=== PATIENT | male | born 1955 | race Caucasian/White ===

== ENCOUNTER 2017-08-31 11:01 | Inpatient (IN) | payer OTHER ==
[~2017-08-31 11:01] MED LIST: EPHEDrine SULFATE 50 MG/5 ML SYG
[2017-08-31] MEDS: ONDANSETRON 4 MG INJ IV (12:12)
[2017-08-31] MEDS: morphine 4 MG/ML VIAL IV (12:13)
[2017-08-31] MEDS: SOD CHLORIDE 0.9% 500 ML IV (12:13)
[2017-08-31 12:20] LABS: WHITE BLOOD COUNT 8.5 10^3/ul (4.8-10.8)
[2017-08-31 12:20] LABS: ABNORMAL IP MESSAGE 1; HEMOGLOBIN 16.2 g/dl (14.0-18.0); MEAN CORPUSCULAR HEMOGLOBIN 28.5 pg (29.0-33.0); MEAN CORPUSCULAR HGB CONC 33.8 g/dl (32.0-37.0); MEAN CORPUSCULAR VOLUME 84.4 fl (82.0-101.0); MEAN PLATELET VOLUME 10.6 fl (7.4-10.4); PLATELET COUNT 307 10^3/UL (140-415); POSITIVE DIFF @See below; RED BLOOD COUNT 5.69 10^6/ul (4.70-6.10); RED CELL DISTRIBUTION WIDTH 13.2 % (11.5-14.5)
[2017-08-31 12:21] LABS: ADD MAN DIFF? YES
[2017-08-31 12:37] LABS: LACTIC ACID 2.2 mmol/L (0.5-2.0)
[2017-08-31 12:38] LABS: ALANINE AMINOTRANSFERASE 31 IU/L (13-69); ALBUMIN 4.3 g/dl (3.3-4.9); ALBUMIN/GLOBULIN RATIO 1.38; ALKALINE PHOSPHATASE 83 IU/L (42-121); ANION GAP 24 (8-16); ASPARTATE AMINO TRANSFERASE 21 IU/L (15-46); BILIRUBIN,INDIRECT 0.3 mg/dl (0-1.1); BILIRUBIN,TOTAL 0.3 mg/dl (0.2-1.3); BLOOD UREA NITROGEN 39 mg/dl (7-20); CALCIUM 9.6 mg/dl (8.4-10.2); CARBON DIOXIDE 30 mmol/L (21-31); CHLORIDE 94 mmol/L (97-110); CREATININE 1.49 mg/dl (0.61-1.24); GLUCOSE 207 mg/dl (70-220); LIPASE 446 U/L (23-300); POTASSIUM 3.7 mmol/L (3.5-5.1); SODIUM 144 mmol/L (135-144); TOTAL PROTEIN 7.4 g/dl (6.1-8.1)
[2017-08-31 12:46] LABS: ANISOCYTOSIS 2+ (0-0); BAND NEUTROPHILS #M 3.8 10^3/ul (0.0-0.6); BAND NEUTROPHILS % (M) 45 % (0-4); LYMPHOCYTES #M 1.1 10^3/ul (0.8-2.9); LYMPHOCYTES % (M) 13 % (15-51); METAMYELOCYTES %M 1 % (0-0); MICROCYTOSIS 1+ (0-0); MONOCYTES % (M) 12 % (0-11); PLATELET ESTIMATE NORMAL; POIKILOCYTOSIS 1+ (0-0); POLYCHROMASIA 1+ (0-0); SEG NEUT #M 2.8 10^3/ul (1.7-7.5); SEGMENTED NEUTROPHILS (M) % 29 % (39-77)
[2017-08-31 13:40] LABS: TROPONIN-I < 0.012 ng/ml (0.00-0.12)
[2017-08-31] MEDS ORDERED: ONDANSETRON 4 MG INJ IV ×3 (16:30→21:00)
[2017-08-31] MEDS ORDERED: ACETAMINOPHEN 325 MG TAB PO ×2 (16:30→20:00)
[2017-08-31] MEDS ORDERED: D5W-0.45 NACL + KCL 20 MEQ 1,000 ML IV ×2 (19:35→21:56)
[2017-08-31 19:36] LABS: ADD UMIC YES; UR ASCORBIC ACID NEGATIVE (NEGATIVE); UR BILIRUBIN (Dip) NEGATIVE (NEGATIVE); UR BLOOD (Dip) 1+ mg/dL (NEGATIVE); UR CLARITY SLIGHTLY CLOUDY (CLEAR); UR COLOR AMBER (YELLOW); UR GLUCOSE (Dip) 1+ mg/dL (NEGATIVE); UR KETONES (Dip) TRACE mg/dL (NEGATIVE); UR LEUKOCYTE ESTERASE (Dip) NEGATIVE Leu/ul (NEGATIVE); UR MUCUS MODERATE /HPF (NONE SEEN); UR NITRITE (Dip) NEGATIVE (NEGATIVE); UR RBC 5 /HPF (0-5); UR SPECIFIC GRAVITY (Dip) 1.031 (1.003-1.030); UR TOTAL PROTEIN (Dip) 2+ mg/dl (NEGATIVE); UR UROBILINOGEN (Dip) 1+ mg/dL (NEGATIVE); UR WBC 2 /HPF (0-5)
[2017-08-31] MEDS ORDERED: NACL 0.9% 3 ML SYG IV (20:00)
[2017-08-31] MEDS ORDERED: GLYCOPYRROLATE 0.4 MG INJ ×3 (20:55→21:44)
[2017-08-31] MEDS ORDERED: SUCCINYLCHOLINE CHLORIDE 100 MG/5 ML SYG IV (20:55)
[2017-08-31] MEDS ORDERED: LIDOCAINE 2% (SDV) 5 ML INJ (20:55)
[2017-08-31] MEDS ORDERED: PROPOFOL 20 ML (20:55)
[2017-08-31] MEDS ORDERED: ROCURONIUM 50 MG INJ (20:55)
[2017-08-31] MEDS ORDERED: MEPERIDINE 100 MG INJ (20:55)
[2017-08-31] MEDS ORDERED: NEOSTIGMINE 3 MG/3 ML SYRINGE ×2 (20:55→21:44)
[2017-08-31] MEDS ORDERED: MIDAZOLAM 1 MG/ML 2 ML INJ IV (21:00)
[2017-08-31] MEDS ORDERED: HYDROmorphONE (0.2 MG/ML) 10ML SYG IV ×3 (21:00)
[2017-08-31] MEDS ORDERED: LABETALOL HCL 20MG INJ IV (21:00)
[2017-08-31] MEDS ORDERED: FENTAnyl 50 MCG/ML VIAL IV ×3 (21:00)
[2017-08-31] MEDS ORDERED: OXYCODONE/ACETAMINOPHEN (5/325) TAB PO ×2 (21:00)
[2017-08-31] MEDS ORDERED: DIPHENHYDRAMINE 50 MG INJ IV (21:00)
[2017-08-31] MEDS ORDERED: hydrALAzine 20 MG INJ IV (21:00)
[2017-08-31] MEDS ORDERED: EPHEDrine SULFATE 50 MG/5 ML SYG IV (21:00)
[2017-08-31] MEDS ORDERED: METOCLOPRAMIDE 10 MG INJ IV (21:00)
[2017-08-31] MEDS ORDERED: LIDOCAINE 1% (MPF) 30 ML INJ (21:25)
[2017-08-31] MEDS ORDERED: BUPIVACAINE 0.25%/EPI (SDV) 30 ML INJ (21:25)
[2017-08-31] MEDS ORDERED: EPINEPHrine 0.1 MG/ML SYG (21:44)
[2017-08-31] MEDS ORDERED: CEFAZOLIN 1 GM INJ (21:44)
[2017-08-31] MEDS: DEXTROSE 5%-0.45% NACL 1,000 ML IV (22:00)
[2017-08-31] MEDS ORDERED: KETOROLAC 15 MG INJ IV (22:00)
[2017-08-31] MEDS: CEFAZOLIN 2 GM/50 ML (PMX) 50 ML IVPB (22:00)
[2017-08-31] MEDS: BUPIVACAINE 0.25%/EPI (SDV) 30 ML INJ INJ (22:00)
[2017-08-31] MEDS: LIDOCAINE 1% (MPF) 30 ML INJ INJ (22:00)
[2017-08-31] MEDS: MEPERIDINE 25 MG INJ IV (22:26)
[2017-09-01] MEDS: DEXTROSE 5%-0.45% NACL 1,000 ML IV ×2 (04:19→07:45)
[2017-09-01 05:04] LABS: ADD MAN DIFF? NO
[2017-09-01 05:20] LABS: BASOPHILS % 0.3 % (0.0-2.0); EOSINOPHILS % 0.1 % (0.0-7.0); HEMATOCRIT 39.8 % (42.0-52.0); HEMOGLOBIN 13.4 g/dl (14.0-18.0); LYMPHOCYTES # 0.8 10^3/ul (0.8-2.9); LYMPHOCYTES % 8.8 % (15.0-51.0); MEAN CORPUSCULAR HEMOGLOBIN 28.9 pg (29.0-33.0); MEAN CORPUSCULAR HGB CONC 33.7 g/dl (32.0-37.0); MEAN CORPUSCULAR VOLUME 85.8 fl (82.0-101.0); MEAN PLATELET VOLUME 10.7 fl (7.4-10.4); MONOCYTE # 0.9 10^3/ul (0.3-0.9); MONOCYTES % 9.7 % (0.0-11.0); NEUTROPHIL # 7.3 10^3/ul (1.6-7.5); NEUTROPHILS % 80.7 % (39.0-77.0); PLATELET COUNT 228 10^3/UL (140-415); POSITIVE DIFF @See below; RED BLOOD COUNT 4.64 10^6/ul (4.70-6.10); RED CELL DISTRIBUTION WIDTH 13.3 % (11.5-14.5)
[2017-09-01] MEDS: CEFAZOLIN 2 GM/50 ML (PMX) 50 ML IVPB ×2 (05:47→13:16)
[2017-09-01] MEDS: PANTOPRAZOLE 40 MG INJ IV (05:47)
[2017-09-01 06:09] LABS: ANION GAP 16 (8-16); BLOOD UREA NITROGEN 38 mg/dl (7-20); CALCIUM 8.4 mg/dl (8.4-10.2); CARBON DIOXIDE 33 mmol/L (21-31); CHLORIDE 99 mmol/L (97-110); CREATININE 1.11 mg/dl (0.61-1.24); GLUCOSE 132 mg/dl (70-220); PHOSPHORUS 3.6 mg/dl (2.5-4.9); POTASSIUM 3.3 mmol/L (3.5-5.1); SODIUM 145 mmol/L (135-144)
[2017-09-01] MEDS: KETOROLAC 30 MG INJ IV ×2 (06:12→17:39)
[2017-09-01] MEDS: ENOXAPARIN 40 MG/0.4 ML SYG SC (06:14)
[2017-09-01 08:54] LABS: HEMOGLOBIN A1C 6.1 % (0-5.9)
[2017-09-01] MEDS: morphine 2 MG INJ IV ×2 (10:25→15:20)
[2017-09-01] MEDS ORDERED: POTASSIUM CHLORIDE 30 MEQ in DEXTROSE 5% 250 ML IVPB (12:00)
[2017-09-01] MEDS: POTASSIUM CHLORIDE 20 MEQ in LACTATED RINGER'S 990 ML IV ×2 (13:54→23:00)
[2017-09-01] MEDS: POTASSIUM CHLORIDE 50 ML IVPB ×3 (13:54→16:13)
[2017-09-01 18:14] LABS: HEPATITIS B SURFACE ANTIGEN NEGATIVE (NEGATIVE)
[2017-09-01 18:32] LABS: HEPATITIS C VIRAL ANTIBODY NEGATIVE (NEGATIVE)
[2017-09-02] MEDS: POTASSIUM CHLORIDE 20 MEQ in LACTATED RINGER'S 990 ML IV (04:11)
[2017-09-02 05:09] LABS: ADD MAN DIFF? NO
[2017-09-02 05:15] LABS: WHITE BLOOD COUNT 7.2 10^3/ul (4.8-10.8)
[2017-09-02 05:15] LABS: BASOPHILS % 0.3 % (0.0-2.0); EOSINOPHILS # 0.1 10^3/ul (0.0-0.5); EOSINOPHILS % 1.8 % (0.0-7.0); HEMATOCRIT 39.1 % (42.0-52.0); HEMOGLOBIN 12.5 g/dl (14.0-18.0); LYMPHOCYTES # 1.1 10^3/ul (0.8-2.9); LYMPHOCYTES % 14.6 % (15.0-51.0); MEAN CORPUSCULAR HEMOGLOBIN 28.1 pg (29.0-33.0); MEAN CORPUSCULAR VOLUME 87.9 fl (82.0-101.0); MEAN PLATELET VOLUME 10.5 fl (7.4-10.4); MONOCYTE # 0.9 10^3/ul (0.3-0.9); MONOCYTES % 12.1 % (0.0-11.0); NEUTROPHIL # 5.1 10^3/ul (1.6-7.5); NEUTROPHILS % 70.5 % (39.0-77.0); PLATELET COUNT 217 10^3/UL (140-415); RED BLOOD COUNT 4.45 10^6/ul (4.70-6.10); RED CELL DISTRIBUTION WIDTH 13.2 % (11.5-14.5)
[2017-09-02 05:54] LABS: ANION GAP 14 (8-16); BLOOD UREA NITROGEN 30 mg/dl (7-20); CALCIUM 8.7 mg/dl (8.4-10.2); CARBON DIOXIDE 35 mmol/L (21-31); CHLORIDE 101 mmol/L (97-110); CREATININE 0.96 mg/dl (0.61-1.24); GLUCOSE 90 mg/dl (70-220); POTASSIUM 3.9 mmol/L (3.5-5.1); SODIUM 146 mmol/L (135-144)
[2017-09-02] MEDS: PANTOPRAZOLE 40 MG INJ IV (06:26)
[2017-09-02] MEDS: ENOXAPARIN 40 MG/0.4 ML SYG SC (06:30)
[2017-09-02 08:10] LABS: ERYTHROCYTE SEDIMENTATION RATE 62 mm/Hr (0-20)
[2017-09-02] MEDS: KETOROLAC 30 MG INJ IV ×2 (08:17→19:44)
[2017-09-02] MEDS: SOD CHLORIDE 0.9% 1,000 ML IV ×2 (12:46→19:41)
[2017-09-03 05:36] LABS: ADD MAN DIFF? NO
[2017-09-03 05:46] LABS: WHITE BLOOD COUNT 8.1 10^3/ul (4.8-10.8)
[2017-09-03 05:46] LABS: BASOPHIL # 0.1 10^3/ul (0.0-0.1); BASOPHILS % 0.6 % (0.0-2.0); EOSINOPHILS # 0.3 10^3/ul (0.0-0.5); EOSINOPHILS % 4.1 % (0.0-7.0); HEMATOCRIT 38.1 % (42.0-52.0); HEMOGLOBIN 11.8 g/dl (14.0-18.0); LYMPHOCYTES # 1.1 10^3/ul (0.8-2.9); LYMPHOCYTES % 13.8 % (15.0-51.0); MEAN CORPUSCULAR HEMOGLOBIN 27.7 pg (29.0-33.0); MEAN CORPUSCULAR VOLUME 89.4 fl (82.0-101.0); MEAN PLATELET VOLUME 10.3 fl (7.4-10.4); MONOCYTE # 0.9 10^3/ul (0.3-0.9); NEUTROPHIL # 5.5 10^3/ul (1.6-7.5); NEUTROPHILS % 68.1 % (39.0-77.0); PLATELET COUNT 215 10^3/UL (140-415); RED BLOOD COUNT 4.26 10^6/ul (4.70-6.10); RED CELL DISTRIBUTION WIDTH 13.2 % (11.5-14.5)
[2017-09-03 06:05] LABS: LACTIC ACID 0.8 mmol/L (0.5-2.0); LIPASE 902 U/L (23-300)
[2017-09-03] MEDS: PANTOPRAZOLE 40 MG INJ IV (06:06)
[2017-09-03] MEDS: SOD CHLORIDE 0.9% 1,000 ML IV ×3 (06:06→20:43)
[2017-09-03] MEDS: ENOXAPARIN 40 MG/0.4 ML SYG SC (06:08)
[2017-09-03 06:17] LABS: ANION GAP 14 (8-16); BLOOD UREA NITROGEN 19 mg/dl (7-20); CALCIUM 8.2 mg/dl (8.4-10.2); CARBON DIOXIDE 31 mmol/L (21-31); CHLORIDE 102 mmol/L (97-110); CREATININE 0.79 mg/dl (0.61-1.24); GLUCOSE 76 mg/dl (70-220); MAGNESIUM 1.9 mg/dl (1.7-2.5); POTASSIUM 3.5 mmol/L (3.5-5.1); SODIUM 143 mmol/L (135-144)
[2017-09-03] MEDS: POLYETHYLENE GLYCOL 17 GM PACKET PO (13:18)
[2017-09-03] MEDS: DOCUSATE SODIUM 100 MG CAP PO (20:42)
[2017-09-04 05:30] LABS: ADD MAN DIFF? NO
[2017-09-04 05:36] LABS: WHITE BLOOD COUNT 7.9 10^3/ul (4.8-10.8)
[2017-09-04 05:36] LABS: BASOPHILS % 0.5 % (0.0-2.0); EOSINOPHILS # 0.3 10^3/ul (0.0-0.5); EOSINOPHILS % 4.2 % (0.0-7.0); HEMATOCRIT 37.8 % (42.0-52.0); HEMOGLOBIN 12.4 g/dl (14.0-18.0); LYMPHOCYTES # 1.2 10^3/ul (0.8-2.9); LYMPHOCYTES % 15.5 % (15.0-51.0); MEAN CORPUSCULAR HEMOGLOBIN 28.1 pg (29.0-33.0); MEAN CORPUSCULAR HGB CONC 32.8 g/dl (32.0-37.0); MEAN CORPUSCULAR VOLUME 85.7 fl (82.0-101.0); MEAN PLATELET VOLUME 10.2 fl (7.4-10.4); MONOCYTES % 12.5 % (0.0-11.0); NEUTROPHILS % 63.4 % (39.0-77.0); PLATELET COUNT 214 10^3/UL (140-415); RED BLOOD COUNT 4.41 10^6/ul (4.70-6.10)
[2017-09-04 06:01] LABS: MAGNESIUM 1.6 mg/dl (1.7-2.5)
[2017-09-04] MEDS: SOD CHLORIDE 0.9% 1,000 ML IV (06:04)
[2017-09-04] MEDS: PANTOPRAZOLE 40 MG INJ IV (06:04)
[2017-09-04 06:05] LABS: ANION GAP 9 (8-16); BLOOD UREA NITROGEN 10 mg/dl (7-20); CALCIUM 8.4 mg/dl (8.4-10.2); CARBON DIOXIDE 32 mmol/L (21-31); CHLORIDE 102 mmol/L (97-110); CREATININE 0.66 mg/dl (0.61-1.24); GLUCOSE 112 mg/dl (70-220); SODIUM 140 mmol/L (135-144)
[2017-09-04] MEDS: ENOXAPARIN 40 MG/0.4 ML SYG SC (06:06)
[2017-09-04 07:08] LABS: POTASSIUM 2.9 mmol/L (3.5-5.1)
[2017-09-04] MEDS: DOCUSATE SODIUM 100 MG CAP PO ×2 (09:17→21:12)
[2017-09-04] MEDS: POTASSIUM CHLORIDE (SR) 20 MEQ TAB PO ×2 (09:17→12:18)
[2017-09-04] MEDS: POLYETHYLENE GLYCOL 17 GM PACKET PO (09:17)
[2017-09-04] MEDS: MAGNESIUM SULFATE 2 GM/50 ML 50 ML IVPB (09:23)
[2017-09-04] MEDS: HYDROCODONE/APAP (5/325) TAB PO ×2 (10:35→21:14)
[2017-09-04 11:24] LABS: ALANINE AMINOTRANSFERASE 23 IU/L (13-69); ALBUMIN 2.8 g/dl (3.3-4.9); ALKALINE PHOSPHATASE 61 IU/L (42-121); ASPARTATE AMINO TRANSFERASE 16 IU/L (15-46); BILIRUBIN,INDIRECT 0.2 mg/dl (0-1.1); BILIRUBIN,TOTAL 0.2 mg/dl (0.2-1.3); TOTAL PROTEIN 5.3 g/dl (6.1-8.1)
[2017-09-04 11:26] LABS: LIPASE 1363 U/L (23-300)
[2017-09-05] MEDS: HYDROCODONE/APAP (5/325) TAB PO (05:19)
[2017-09-05] MEDS: PANTOPRAZOLE 40 MG INJ IV (06:04)
[2017-09-05] MEDS: ENOXAPARIN 40 MG/0.4 ML SYG SC (06:05)
[2017-09-05] MEDS: morphine 2 MG INJ IV (08:16)
[2017-09-05] MEDS: DOCUSATE SODIUM 100 MG CAP PO (08:18)
[2017-09-05] MEDS: POLYETHYLENE GLYCOL 17 GM PACKET PO (08:18)
[2017-09-05] MEDS: ONDANSETRON 4 MG INJ IV (08:21)
[2017-09-05 09:21] LABS: ADD MAN DIFF? NO
[2017-09-05 09:36] LABS: WHITE BLOOD COUNT 8.7 10^3/ul (4.8-10.8)
[2017-09-05 09:36] LABS: BASOPHIL # 0.1 10^3/ul (0.0-0.1); BASOPHILS % 0.6 % (0.0-2.0); EOSINOPHILS # 0.3 10^3/ul (0.0-0.5); EOSINOPHILS % 3.2 % (0.0-7.0); HEMATOCRIT 41.8 % (42.0-52.0); HEMOGLOBIN 13.9 g/dl (14.0-18.0); LYMPHOCYTES # 1.6 10^3/ul (0.8-2.9); LYMPHOCYTES % 18.3 % (15.0-51.0); MEAN CORPUSCULAR HEMOGLOBIN 28.1 pg (29.0-33.0); MEAN CORPUSCULAR HGB CONC 33.3 g/dl (32.0-37.0); MEAN CORPUSCULAR VOLUME 84.4 fl (82.0-101.0); MEAN PLATELET VOLUME 10.7 fl (7.4-10.4); MONOCYTE # 0.9 10^3/ul (0.3-0.9); MONOCYTES % 10.2 % (0.0-11.0); NEUTROPHIL # 5.6 10^3/ul (1.6-7.5); NEUTROPHILS % 63.9 % (39.0-77.0); PLATELET COUNT 254 10^3/UL (140-415); RED BLOOD COUNT 4.95 10^6/ul (4.70-6.10)
[2017-09-05] MEDS: AMLODIPINE 10 MG TAB PO (09:44)
[2017-09-05] MEDS: ASPIRIN 81 MG TAB PO (09:44)
[2017-09-05 09:45] LABS: ANION GAP 11 (8-16); BLOOD UREA NITROGEN 6 mg/dl (7-20); CALCIUM 8.7 mg/dl (8.4-10.2); CARBON DIOXIDE 33 mmol/L (21-31); CHLORIDE 99 mmol/L (97-110); GLUCOSE 135 mg/dl (70-220); POTASSIUM 3.8 mmol/L (3.5-5.1); SODIUM 139 mmol/L (135-144)
[2017-09-05 09:50] LABS: MAGNESIUM 1.7 mg/dl (1.7-2.5)
[2017-09-05 10:57] LABS: LIPASE 677 U/L (23-300)
== END 2017-09-05 19:36 | disposition home or self-care (01) | DRG 353 ==
LOC: MS1 16:22 → E/R 11:01 → MS1 23:00
PROC: 0WUF0JZ Supplement Abdominal Wall with Synthetic Substitute, Open Approach (ICD-10-PCS; principal; 2017-08-31 09:00)
DX: K42.0 Umbilical hernia with obstruction, without gangrene (principal); J18.9 Pneumonia, unspecified organism; N17.9 Acute kidney failure, unspecified; E87.2 Acidosis; J98.11 Atelectasis; K43.6 Other and unspecified ventral hernia with obstruction, without gangrene; I10 Essential (primary) hypertension; E78.5 Hyperlipidemia, unspecified; Z86.73 Personal history of transient ischemic attack (TIA), and cerebral infarction without residual deficits; K59.00 Constipation, unspecified; K64.9 Unspecified hemorrhoids; E87.6 Hypokalemia; Z72.0 Tobacco use; K80.20 Calculus of gallbladder without cholecystitis without obstruction; R73.03 Prediabetes; K86.9 Disease of pancreas, unspecified
CPT/HCPCS: 36415; 71045; 74176; 74181; 76705; 80048; 80053; 80076; 81001; 83036; 83605; 83690; 83735; 84100; 84484; 85025; 85651; 86803; 87086; 87340; 88302; 93005; 96374; 96375; 99285-25

== ENCOUNTER 2018-06-04 14:23 | Emergency (ER) | payer OTHER ==
[2018-06-04 15:24] LABS: ADD MAN DIFF? NO
[2018-06-04] MEDS: SOD CHLORIDE 0.9% 500 ML IV (15:27)
[2018-06-04 15:28] LABS: BASOPHILS % 0.1 % (0.0-2.0); EOSINOPHILS # 0.2 10^3/ul (0.0-0.5); EOSINOPHILS % 2.7 % (0.0-7.0); HEMATOCRIT 46.1 % (42.0-52.0); HEMOGLOBIN 15.2 g/dl (14.0-18.0); LYMPHOCYTES # 1.8 10^3/ul (0.8-2.9); LYMPHOCYTES % 24.5 % (15.0-51.0); MEAN CORPUSCULAR HEMOGLOBIN 28.5 pg (29.0-33.0); MEAN CORPUSCULAR VOLUME 86.3 fl (82.0-101.0); MONOCYTE # 0.7 10^3/ul (0.3-0.9); MONOCYTES % 8.8 % (0.0-11.0); NEUTROPHIL # 4.8 10^3/ul (1.6-7.5); NEUTROPHILS % 63.6 % (39.0-77.0); PLATELET COUNT 227 10^3/UL (140-415); POSITIVE DIFF @See below; RED BLOOD COUNT 5.34 10^6/ul (4.70-6.10); RED CELL DISTRIBUTION WIDTH 12.9 % (11.5-14.5)
[2018-06-04 15:28] LABS: WHITE BLOOD COUNT 7.5 10^3/ul (4.8-10.8)
[2018-06-04 15:47] LABS: ANION GAP 15 (8-16); BLOOD UREA NITROGEN 13 mg/dl (7-20); CALCIUM 9.6 mg/dl (8.4-10.2); CARBON DIOXIDE 32 mmol/L (21-31); CHLORIDE 102 mmol/L (97-110); CREATINE KINASE 783 IU/L (23-200); CREATININE 0.69 mg/dl (0.61-1.24); GLUCOSE 104 mg/dl (70-220); POTASSIUM 3.8 mmol/L (3.5-5.1); SODIUM 145 mmol/L (135-144)
[2018-06-04 16:17] LABS: TROPONIN-I < 0.012 ng/ml (0.000-0.120)
== END 2018-06-04 19:35 | disposition home or self-care (01) ==
LOC: E/R 14:23
DX: R53.1 Weakness (principal); I10 Essential (primary) hypertension; Z86.73 Personal history of transient ischemic attack (TIA), and cerebral infarction without residual deficits
CPT/HCPCS: 36415; 70450; 71045; 80048; 82550; 84484; 85025; 93005; 99285-25

== ENCOUNTER 2019-04-08 16:51 | Inpatient (IN) | payer OTHER ==
[2019-04-08] MEDS: ACETAMINOPHEN 500 MG TAB PO (17:56)
[2019-04-08 17:59] LABS: ADD MAN DIFF? NO
[2019-04-08 18:01] LABS: WHITE BLOOD COUNT 13.7 10^3/ul (4.8-10.8)
[2019-04-08 18:01] LABS: ABNORMAL IP MESSAGE 1; BASOPHILS % 0.1 % (0.0-2.0); HEMATOCRIT 47.7 % (42.0-52.0); HEMOGLOBIN 15.1 g/dl (14.0-18.0); LYMPHOCYTES # 0.3 10^3/ul (0.8-2.9); LYMPHOCYTES % 2.2 % (15.0-51.0); MEAN CORPUSCULAR HEMOGLOBIN 27.8 pg (29.0-33.0); MEAN CORPUSCULAR HGB CONC 31.7 g/dl (32.0-37.0); MEAN CORPUSCULAR VOLUME 87.7 fl (82.0-101.0); MEAN PLATELET VOLUME 9.5 fl (7.4-10.4); MONOCYTE # 0.4 10^3/ul (0.3-0.9); MONOCYTES % 2.9 % (0.0-11.0); NEUTROPHIL # 12.9 10^3/ul (1.6-7.5); NEUTROPHILS % 94.5 % (39.0-77.0); PLATELET COUNT 207 10^3/UL (140-415); RED BLOOD COUNT 5.44 10^6/ul (4.70-6.10); RED CELL DISTRIBUTION WIDTH 14.1 % (11.5-14.5)
[2019-04-08 18:20] LABS: ALANINE AMINOTRANSFERASE 182 IU/L (13-69); ALBUMIN 4.4 g/dl (3.3-4.9); ALKALINE PHOSPHATASE 164 IU/L (42-121); ANION GAP 9 (5-13); ASPARTATE AMINO TRANSFERASE 244 IU/L (15-46); BILIRUBIN,INDIRECT 0.8 mg/dl (0-1.1); BLOOD UREA NITROGEN 15 mg/dl (7-20); CALCIUM 9.9 mg/dl (8.4-10.2); CARBON DIOXIDE 34 mmol/L (21-31); CHLORIDE 99 mmol/L (97-110); CREATININE 0.87 mg/dl (0.61-1.24); Estimated GFR > 60 mL/min (>60); GLUCOSE 166 mg/dl (70-220); POTASSIUM 3.6 mmol/L (3.5-5.1); SODIUM 142 mmol/L (135-144); TOTAL PROTEIN 8.4 g/dl (6.1-8.1)
[2019-04-08 18:31] LABS: TROPONIN-I 0.015 ng/ml (0.000-0.120)
[2019-04-08] MEDS: SODIUM CHLORIDE 0.9% 1L BAG IV* (18:47)
[2019-04-08] MEDS: CEFTRIAXONE 1 GM/50 ML (PMX) 50 ML IVPB (18:47)
[2019-04-08] MEDS: AZITHROMYCIN 500MG/NS (PMX) 250 ML IV (19:17)
[2019-04-08] MEDS: IBUPROFEN 600 MG TAB PO (19:17)
[2019-04-08 19:34] LABS: ADD UMIC YES; UR ASCORBIC ACID NEGATIVE (NEGATIVE); UR BACTERIA FEW /HPF (NONE SEEN); UR BILIRUBIN (Dip) NEGATIVE (NEGATIVE); UR BLOOD (Dip) 2+ mg/dL (NEGATIVE); UR CLARITY CLEAR (CLEAR); UR COLOR YELLOW (YELLOW); UR GLUCOSE (Dip) NEGATIVE (NEGATIVE); UR KETONES (Dip) TRACE mg/dL (NEGATIVE); UR LEUKOCYTE ESTERASE (Dip) NEGATIVE Leu/ul (NEGATIVE); UR NITRITE (Dip) NEGATIVE (NEGATIVE); UR RBC 22 /HPF (0-5); UR SPECIFIC GRAVITY (Dip) 1.014 (1.003-1.030); UR TOTAL PROTEIN (Dip) 1+ mg/dl (NEGATIVE); UR UROBILINOGEN (Dip) 2+ mg/dL (NEGATIVE); UR WBC 3 /HPF (0-5)
[2019-04-08 19:49] LABS: LIPASE 127 U/L (23-300)
[2019-04-08] MEDS ORDERED: ACETAMINOPHEN 325 MG TAB PO (20:00)
[2019-04-08] MEDS ORDERED: ONDANSETRON 4 MG INJ IV (20:00)
[2019-04-08] MEDS: metroNIDAZOLE 500 MG/NS (PMX) 100 ML IVPB (20:28)
[2019-04-08] MEDS ORDERED: NACL 0.9% 3 ML SYG IV (21:00)
[2019-04-08] MEDS: PIPER-TAZO 3.375 GM IV (PMX) 100 ML IVPB (21:23)
[2019-04-08] MEDS: DEXTROSE 5%-0.45% NACL 1,000 ML IV (21:23)
[2019-04-08 21:52] LABS: LACTIC ACID 2.9 mmol/L (0.5-2.0)
[2019-04-09 00:17] LABS: LACTIC ACID 3.4 mmol/L (0.5-2.0)
[2019-04-09] MEDS: PIPER-TAZO 3.375 GM IV (PMX) 100 ML IVPB ×4 (03:20→21:59)
[2019-04-09 06:18] LABS: ADD MAN DIFF? NO
[2019-04-09 06:25] LABS: BASOPHILS % 0.2 % (0.0-2.0); EOSINOPHILS # 0.1 10^3/ul (0.0-0.5); EOSINOPHILS % 0.7 % (0.0-7.0); HEMATOCRIT 46.2 % (42.0-52.0); HEMOGLOBIN 14.5 g/dl (14.0-18.0); LYMPHOCYTES # 0.9 10^3/ul (0.8-2.9); LYMPHOCYTES % 5.3 % (15.0-51.0); MEAN CORPUSCULAR HEMOGLOBIN 27.7 pg (29.0-33.0); MEAN CORPUSCULAR HGB CONC 31.4 g/dl (32.0-37.0); MEAN CORPUSCULAR VOLUME 88.3 fl (82.0-101.0); MEAN PLATELET VOLUME 9.8 fl (7.4-10.4); MONOCYTE # 0.6 10^3/ul (0.3-0.9); MONOCYTES % 3.7 % (0.0-11.0); NEUTROPHIL # 14.9 10^3/ul (1.6-7.5); NEUTROPHILS % 89.7 % (39.0-77.0); PLATELET COUNT 189 10^3/UL (140-415); RED BLOOD COUNT 5.23 10^6/ul (4.70-6.10); RED CELL DISTRIBUTION WIDTH 14.6 % (11.5-14.5)
[2019-04-09 06:25] LABS: WHITE BLOOD COUNT 16.6 10^3/ul (4.8-10.8)
[2019-04-09 06:47] LABS: ALANINE AMINOTRANSFERASE 297 IU/L (13-69); ALBUMIN 3.8 g/dl (3.3-4.9); ALBUMIN/GLOBULIN RATIO 1.22; ALKALINE PHOSPHATASE 132 IU/L (42-121); ANION GAP 10 (5-13); ASPARTATE AMINO TRANSFERASE 330 IU/L (15-46); BILIRUBIN,TOTAL 2.5 mg/dl (0.2-1.3); BLOOD UREA NITROGEN 13 mg/dl (7-20); CALCIUM 9.1 mg/dl (8.4-10.2); CARBON DIOXIDE 31 mmol/L (21-31); CHLORIDE 102 mmol/L (97-110); CHOLESTEROL 150 mg/dl (100-200); CREATININE 0.73 mg/dl (0.61-1.24); Estimated GFR > 60 mL/min (>60); GLUCOSE 128 mg/dl (70-220); HDL CHOLESTEROL 49 mg/dl (30-78); LDL CHOLESTEROL,CALCULATED 87 mg/dl; MAGNESIUM 1.9 mg/dl (1.7-2.5); POTASSIUM 3.9 mmol/L (3.5-5.1); SODIUM 143 mmol/L (135-144); TOTAL PROTEIN 6.9 g/dl (6.1-8.1); TRIGLYCERIDES 72 mg/dl (0-149)
[2019-04-09] MEDS ORDERED: VANCOMYCIN IV PER PHARMACY XX (07:00)
[2019-04-09] MEDS: DEXTROSE 5%-0.45% NACL 1,000 ML IV ×2 (07:57→16:36)
[2019-04-09 09:47] LABS: HAAIG REFLEX REFLEX FILED
[2019-04-09 10:14] LABS: LACTIC ACID 1.7 mmol/L (0.5-2.0)
[2019-04-09] MEDS: VANCOMYCIN 1.5 GM/NS 250 ML 250 ML IVPB (10:57)
[2019-04-09 12:49] LABS: HEPATITIS B SURFACE ANTIGEN NEGATIVE (NEGATIVE)
[2019-04-09 13:07] LABS: HEPATITIS B CORE ANTIBODY NEGATIVE (NEGATIVE); HEPATITIS C VIRAL ANTIBODY NEGATIVE (NEGATIVE)
[2019-04-09] MEDS: VANCOMYCIN 1 GM 250 ML IVPB (21:59)
[2019-04-09] MEDS: HEPARIN 5,000 UNIT/1 ML VIAL SC (22:02)
[2019-04-10] MEDS: DEXTROSE 5%-0.45% NACL 1,000 ML IV (02:43)
[2019-04-10] MEDS: PIPER-TAZO 3.375 GM IV (PMX) 100 ML IVPB ×4 (03:00→22:15)
[2019-04-10 07:28] LABS: ALANINE AMINOTRANSFERASE 229 IU/L (13-69); ALBUMIN 3.9 g/dl (3.3-4.9); ALBUMIN/GLOBULIN RATIO 1.02; ALKALINE PHOSPHATASE 162 IU/L (42-121); ANION GAP 10 (5-13); ASPARTATE AMINO TRANSFERASE 121 IU/L (15-46); BILIRUBIN,INDIRECT 1.3 mg/dl (0-1.1); BILIRUBIN,TOTAL 3.5 mg/dl (0.2-1.3); BLOOD UREA NITROGEN 9 mg/dl (7-20); CALCIUM 9.2 mg/dl (8.4-10.2); CARBON DIOXIDE 29 mmol/L (21-31); CHLORIDE 103 mmol/L (97-110); CREATININE 0.93 mg/dl (0.61-1.24); Estimated GFR > 60 mL/min (>60); GLUCOSE 116 mg/dl (70-220); POTASSIUM 3.3 mmol/L (3.5-5.1); SODIUM 142 mmol/L (135-144); TOTAL PROTEIN 7.7 g/dl (6.1-8.1)
[2019-04-10] MEDS: HEPARIN 5,000 UNIT/1 ML VIAL SC ×2 (08:57→22:21)
[2019-04-10] MEDS: VANCOMYCIN 1 GM 250 ML IVPB (10:51)
[2019-04-10] MEDS: hydrALAzine 20 MG INJ IV (11:48)
[2019-04-10] MEDS: D5W-0.45 NACL + KCL 20 MEQ 1,000 ML IV ×2 (13:03→22:00)
[2019-04-10] MEDS ORDERED: ACET/BUTAL/CAFF TAB PO (14:30)
[2019-04-10] MEDS: morphine 2 MG INJ IV (17:42)
[2019-04-11 01:08] LABS: ADD MAN DIFF? NO
[2019-04-11 01:11] LABS: BASOPHILS % 0.1 % (0.0-2.0); EOSINOPHILS # 0.2 10^3/ul (0.0-0.5); EOSINOPHILS % 2.6 % (0.0-7.0); HEMATOCRIT 39.2 % (42.0-52.0); HEMOGLOBIN 12.7 g/dl (14.0-18.0); LYMPHOCYTES # 0.7 10^3/ul (0.8-2.9); LYMPHOCYTES % 9.7 % (15.0-51.0); MEAN CORPUSCULAR HEMOGLOBIN 27.7 pg (29.0-33.0); MEAN CORPUSCULAR HGB CONC 32.4 g/dl (32.0-37.0); MEAN CORPUSCULAR VOLUME 85.6 fl (82.0-101.0); MEAN PLATELET VOLUME 10.1 fl (7.4-10.4); MONOCYTE # 0.5 10^3/ul (0.3-0.9); MONOCYTES % 6.7 % (0.0-11.0); NEUTROPHIL # 5.7 10^3/ul (1.6-7.5); NEUTROPHILS % 80.6 % (39.0-77.0); PLATELET COUNT 166 10^3/UL (140-415); RED BLOOD COUNT 4.58 10^6/ul (4.70-6.10); RED CELL DISTRIBUTION WIDTH 14.8 % (11.5-14.5)
[2019-04-11] MEDS: PIPER-TAZO 3.375 GM IV (PMX) 100 ML IVPB ×4 (03:37→20:09)
[2019-04-11] MEDS: D5W-0.45 NACL + KCL 20 MEQ 1,000 ML IV ×2 (08:10→18:37)
[2019-04-11] MEDS: hydrALAzine 20 MG INJ IV ×3 (08:11→20:47)
[2019-04-11] MEDS: HEPARIN 5,000 UNIT/1 ML VIAL SC ×2 (08:16→20:52)
[2019-04-11] MEDS: ONDANSETRON 4 MG INJ IV (09:11)
[2019-04-11 09:12] LABS: WHITE BLOOD COUNT 6.1 10^3/ul (4.8-10.8)
[2019-04-11 09:12] LABS: ADD MAN DIFF? NO; BASOPHILS % 0.2 % (0.0-2.0); EOSINOPHILS # 0.2 10^3/ul (0.0-0.5); EOSINOPHILS % 3.1 % (0.0-7.0); HEMATOCRIT 42.4 % (42.0-52.0); HEMOGLOBIN 13.5 g/dl (14.0-18.0); LYMPHOCYTES # 0.9 10^3/ul (0.8-2.9); LYMPHOCYTES % 15.1 % (15.0-51.0); MEAN CORPUSCULAR HEMOGLOBIN 27.5 pg (29.0-33.0); MEAN CORPUSCULAR HGB CONC 31.8 g/dl (32.0-37.0); MEAN CORPUSCULAR VOLUME 86.4 fl (82.0-101.0); MEAN PLATELET VOLUME 10.4 fl (7.4-10.4); MONOCYTE # 0.4 10^3/ul (0.3-0.9); MONOCYTES % 6.7 % (0.0-11.0); NEUTROPHIL # 4.5 10^3/ul (1.6-7.5); NEUTROPHILS % 74.4 % (39.0-77.0); PLATELET COUNT 192 10^3/UL (140-415); RED BLOOD COUNT 4.91 10^6/ul (4.70-6.10); RED CELL DISTRIBUTION WIDTH 14.9 % (11.5-14.5)
[2019-04-11 09:48] LABS: ALANINE AMINOTRANSFERASE 190 IU/L (13-69); ALBUMIN 3.7 g/dl (3.3-4.9); ALBUMIN/GLOBULIN RATIO 0.94; ALKALINE PHOSPHATASE 180 IU/L (42-121); ANION GAP 8 (5-13); ASPARTATE AMINO TRANSFERASE 100 IU/L (15-46); BILIRUBIN,TOTAL 2.8 mg/dl (0.2-1.3); BLOOD UREA NITROGEN 8 mg/dl (7-20); CALCIUM 9.1 mg/dl (8.4-10.2); CARBON DIOXIDE 31 mmol/L (21-31); CHLORIDE 102 mmol/L (97-110); CREATININE 0.82 mg/dl (0.61-1.24); Estimated GFR > 60 mL/min (>60); GLUCOSE 147 mg/dl (70-220); SODIUM 141 mmol/L (135-144); TOTAL PROTEIN 7.6 g/dl (6.1-8.1)
[2019-04-11 12:59] LABS: INR 0.88; PT RATIO 0.9
[2019-04-12] MEDS: PIPER-TAZO 3.375 GM IV (PMX) 100 ML IVPB ×4 (03:19→20:51)
[2019-04-12] MEDS: hydrALAzine 20 MG INJ IV (03:21)
[2019-04-12] MEDS: D5W-0.45 NACL + KCL 20 MEQ 1,000 ML IV ×3 (04:00→20:57)
[2019-04-12] MEDS: ACETAMINOPHEN 500 MG TAB PO ×2 (05:57→07:58)
[2019-04-12 06:24] LABS: ADD MAN DIFF? NO
[2019-04-12 06:34] LABS: WHITE BLOOD COUNT 5.6 10^3/ul (4.8-10.8)
[2019-04-12 06:34] LABS: BASOPHILS % 0.5 % (0.0-2.0); EOSINOPHILS # 0.1 10^3/ul (0.0-0.5); EOSINOPHILS % 2.5 % (0.0-7.0); HEMATOCRIT 42.7 % (42.0-52.0); HEMOGLOBIN 13.6 g/dl (14.0-18.0); LYMPHOCYTES # 1.2 10^3/ul (0.8-2.9); LYMPHOCYTES % 21.5 % (15.0-51.0); MEAN CORPUSCULAR HEMOGLOBIN 27.2 pg (29.0-33.0); MEAN CORPUSCULAR HGB CONC 31.9 g/dl (32.0-37.0); MEAN CORPUSCULAR VOLUME 85.4 fl (82.0-101.0); MEAN PLATELET VOLUME 10.3 fl (7.4-10.4); MONOCYTE # 0.4 10^3/ul (0.3-0.9); MONOCYTES % 7.6 % (0.0-11.0); NEUTROPHIL # 3.8 10^3/ul (1.6-7.5); PLATELET COUNT 184 10^3/UL (140-415); RED CELL DISTRIBUTION WIDTH 15.1 % (11.5-14.5)
[2019-04-12 07:01] LABS: ALANINE AMINOTRANSFERASE 201 IU/L (13-69); ALBUMIN 3.6 g/dl (3.3-4.9); ALKALINE PHOSPHATASE 197 IU/L (42-121); ANION GAP 9 (5-13); ASPARTATE AMINO TRANSFERASE 129 IU/L (15-46); BILIRUBIN,INDIRECT 0.9 mg/dl (0-1.1); BILIRUBIN,TOTAL 2.1 mg/dl (0.2-1.3); BLOOD UREA NITROGEN 7 mg/dl (7-20); CALCIUM 8.9 mg/dl (8.4-10.2); CARBON DIOXIDE 30 mmol/L (21-31); CHLORIDE 103 mmol/L (97-110); CREATININE 0.81 mg/dl (0.61-1.24); Estimated GFR > 60 mL/min (>60); GLUCOSE 139 mg/dl (70-220); POTASSIUM 3.3 mmol/L (3.5-5.1); SODIUM 142 mmol/L (135-144); TOTAL PROTEIN 7.2 g/dl (6.1-8.1)
[2019-04-12] MEDS: HEPARIN 5,000 UNIT/1 ML VIAL SC ×2 (08:03→21:00)
[2019-04-12] MEDS ORDERED: INDOMETHACIN 50 MG SUPP PR (12:00)
[2019-04-13] MEDS: hydrALAzine 20 MG INJ IV ×3 (00:01→15:54)
[2019-04-13] MEDS: PIPER-TAZO 3.375 GM IV (PMX) 100 ML IVPB ×4 (02:33→20:34)
[2019-04-13 07:41] LABS: ADD MAN DIFF? NO
[2019-04-13 07:49] LABS: WHITE BLOOD COUNT 5.7 10^3/ul (4.8-10.8)
[2019-04-13 07:49] LABS: BASOPHILS % 0.5 % (0.0-2.0); EOSINOPHILS # 0.2 10^3/ul (0.0-0.5); EOSINOPHILS % 3.5 % (0.0-7.0); HEMATOCRIT 39.1 % (42.0-52.0); HEMOGLOBIN 12.6 g/dl (14.0-18.0); LYMPHOCYTES # 1.2 10^3/ul (0.8-2.9); LYMPHOCYTES % 21.2 % (15.0-51.0); MEAN CORPUSCULAR HEMOGLOBIN 27.6 pg (29.0-33.0); MEAN CORPUSCULAR HGB CONC 32.2 g/dl (32.0-37.0); MEAN CORPUSCULAR VOLUME 85.6 fl (82.0-101.0); MEAN PLATELET VOLUME 10.5 fl (7.4-10.4); MONOCYTE # 0.5 10^3/ul (0.3-0.9); MONOCYTES % 9.3 % (0.0-11.0); NEUTROPHIL # 3.7 10^3/ul (1.6-7.5); NEUTROPHILS % 64.3 % (39.0-77.0); PLATELET COUNT 193 10^3/UL (140-415); RED BLOOD COUNT 4.57 10^6/ul (4.70-6.10); RED CELL DISTRIBUTION WIDTH 15.5 % (11.5-14.5)
[2019-04-13 08:35] LABS: ALANINE AMINOTRANSFERASE 231 IU/L (13-69); ALBUMIN 3.4 g/dl (3.3-4.9); ALKALINE PHOSPHATASE 185 IU/L (42-121); ANION GAP 8 (5-13); ASPARTATE AMINO TRANSFERASE 132 IU/L (15-46); BILIRUBIN,INDIRECT 0.8 mg/dl (0-1.1); BILIRUBIN,TOTAL 0.8 mg/dl (0.2-1.3); BLOOD UREA NITROGEN 7 mg/dl (7-20); CALCIUM 9.1 mg/dl (8.4-10.2); CARBON DIOXIDE 29 mmol/L (21-31); CHLORIDE 103 mmol/L (97-110); CREATININE 0.71 mg/dl (0.61-1.24); Estimated GFR > 60 mL/min (>60); GLUCOSE 171 mg/dl (70-220); POTASSIUM 3.5 mmol/L (3.5-5.1); SODIUM 140 mmol/L (135-144); TOTAL PROTEIN 6.8 g/dl (6.1-8.1)
[2019-04-13] MEDS: D5W-0.45 NACL + KCL 20 MEQ 1,000 ML IV (10:08)
[2019-04-13] MEDS: HEPARIN 5,000 UNIT/1 ML VIAL SC ×2 (10:12→20:50)
[2019-04-13 11:56] LABS: ANA SCREEN NEGATIVE (NEGATIVE)
[2019-04-13] MEDS: LISINOPRIL 20 MG TAB PO (15:54)
[2019-04-13] MEDS: AMLODIPINE 10 MG TAB PO (15:54)
[2019-04-14] MEDS: PIPER-TAZO 3.375 GM IV (PMX) 100 ML IVPB ×2 (02:03→08:09)
[2019-04-14 07:03] LABS: ADD MAN DIFF? NO
[2019-04-14 07:06] LABS: BASOPHILS % 0.4 % (0.0-2.0); EOSINOPHILS # 0.2 10^3/ul (0.0-0.5); EOSINOPHILS % 2.6 % (0.0-7.0); HEMATOCRIT 41.4 % (42.0-52.0); HEMOGLOBIN 13.4 g/dl (14.0-18.0); LYMPHOCYTES # 1.5 10^3/ul (0.8-2.9); LYMPHOCYTES % 20.1 % (15.0-51.0); MEAN CORPUSCULAR HEMOGLOBIN 27.2 pg (29.0-33.0); MEAN CORPUSCULAR HGB CONC 32.4 g/dl (32.0-37.0); MEAN CORPUSCULAR VOLUME 84.1 fl (82.0-101.0); MEAN PLATELET VOLUME 10.9 fl (7.4-10.4); MONOCYTE # 0.6 10^3/ul (0.3-0.9); MONOCYTES % 8.3 % (0.0-11.0); NEUTROPHILS % 67.8 % (39.0-77.0); PLATELET COUNT 219 10^3/UL (140-415); RED BLOOD COUNT 4.92 10^6/ul (4.70-6.10); RED CELL DISTRIBUTION WIDTH 15.8 % (11.5-14.5)
[2019-04-14 07:06] LABS: WHITE BLOOD COUNT 7.3 10^3/ul (4.8-10.8)
[2019-04-14 07:28] LABS: PHOSPHORUS 3.7 mg/dl (2.5-4.9)
[2019-04-14 07:28] LABS: MAGNESIUM 1.8 mg/dl (1.7-2.5)
[2019-04-14 07:34] LABS: ALANINE AMINOTRANSFERASE 231 IU/L (13-69); ALBUMIN 3.6 g/dl (3.3-4.9); ALKALINE PHOSPHATASE 224 IU/L (42-121); ANION GAP 8 (5-13); ASPARTATE AMINO TRANSFERASE 98 IU/L (15-46); BLOOD UREA NITROGEN 10 mg/dl (7-20); CALCIUM 9.4 mg/dl (8.4-10.2); CARBON DIOXIDE 30 mmol/L (21-31); CHLORIDE 100 mmol/L (97-110); CREATININE 0.73 mg/dl (0.61-1.24); Estimated GFR > 60 mL/min (>60); GLUCOSE 144 mg/dl (70-220); POTASSIUM 3.6 mmol/L (3.5-5.1); SODIUM 138 mmol/L (135-144); TOTAL PROTEIN 7.2 g/dl (6.1-8.1)
[2019-04-14] MEDS: ASPIRIN (EC) 81 MG TAB PO (08:09)
[2019-04-14] MEDS: AMLODIPINE 10 MG TAB PO (08:11)
[2019-04-14] MEDS: LISINOPRIL 20 MG TAB PO (08:11)
[2019-04-14] MEDS: HEPARIN 5,000 UNIT/1 ML VIAL SC ×2 (08:12→21:00)
[2019-04-14 13:37] LABS: MITOCHONDRIAL TB NEGATIVE (NEGATIVE); SMOOTH MUSCLE AB SCREEN NEGATIVE (NEGATIVE)
[2019-04-15] MEDS: LEVOFLOXACIN 750 MG TABLET PO (05:35)
[2019-04-15 06:46] LABS: ADD MAN DIFF? NO
[2019-04-15 06:55] LABS: WHITE BLOOD COUNT 6.7 10^3/ul (4.8-10.8)
[2019-04-15 06:55] LABS: BASOPHILS % 0.4 % (0.0-2.0); EOSINOPHILS # 0.2 10^3/ul (0.0-0.5); EOSINOPHILS % 2.5 % (0.0-7.0); HEMOGLOBIN 12.8 g/dl (14.0-18.0); LYMPHOCYTES # 1.4 10^3/ul (0.8-2.9); LYMPHOCYTES % 21.2 % (15.0-51.0); MEAN CORPUSCULAR HEMOGLOBIN 27.4 pg (29.0-33.0); MEAN CORPUSCULAR VOLUME 85.5 fl (82.0-101.0); MEAN PLATELET VOLUME 10.5 fl (7.4-10.4); MONOCYTE # 0.5 10^3/ul (0.3-0.9); MONOCYTES % 7.7 % (0.0-11.0); NEUTROPHIL # 4.5 10^3/ul (1.6-7.5); NEUTROPHILS % 67.2 % (39.0-77.0); PLATELET COUNT 219 10^3/UL (140-415); RED BLOOD COUNT 4.68 10^6/ul (4.70-6.10); RED CELL DISTRIBUTION WIDTH 15.9 % (11.5-14.5)
[2019-04-15 07:24] LABS: MAGNESIUM 1.8 mg/dl (1.7-2.5)
[2019-04-15 07:24] LABS: PHOSPHORUS 3.9 mg/dl (2.5-4.9)
[2019-04-15 07:26] LABS: ALANINE AMINOTRANSFERASE 208 IU/L (13-69); ALBUMIN 3.5 g/dl (3.3-4.9); ALBUMIN/GLOBULIN RATIO 1.06; ALKALINE PHOSPHATASE 204 IU/L (42-121); ANION GAP 8 (5-13); ASPARTATE AMINO TRANSFERASE 104 IU/L (15-46); BILIRUBIN,INDIRECT 0.8 mg/dl (0-1.1); BILIRUBIN,TOTAL 0.8 mg/dl (0.2-1.3); BLOOD UREA NITROGEN 13 mg/dl (7-20); CALCIUM 9.3 mg/dl (8.4-10.2); CARBON DIOXIDE 30 mmol/L (21-31); CHLORIDE 100 mmol/L (97-110); CREATININE 0.78 mg/dl (0.61-1.24); Estimated GFR > 60 mL/min (>60); GLUCOSE 143 mg/dl (70-220); POTASSIUM 3.5 mmol/L (3.5-5.1); SODIUM 138 mmol/L (135-144); TOTAL PROTEIN 6.8 g/dl (6.1-8.1)
[2019-04-15] MEDS: LISINOPRIL 20 MG TAB PO (09:43)
[2019-04-15] MEDS: AMLODIPINE 10 MG TAB PO (09:43)
[2019-04-15] MEDS: ASPIRIN (EC) 81 MG TAB PO (09:44)
[2019-04-15] MEDS: HEPARIN 5,000 UNIT/1 ML VIAL SC (09:56)
== END 2019-04-15 17:45 | disposition home or self-care (01) | DRG 872 ==
LOC: TEL 19:47 → FTE 16:51
DX: A41.9 Sepsis, unspecified organism (principal); K80.20 Calculus of gallbladder without cholecystitis without obstruction; I10 Essential (primary) hypertension; R74.0 Nonspecific elevation of levels of transaminase and lactic acid dehydrogenase [LDH]; E78.5 Hyperlipidemia, unspecified; F03.90 Unspecified dementia, unspecified severity, without behavioral disturbance, psychotic disturbance, mood disturbance, and anxiety; Z68.30 Body mass index [BMI] 30.0-30.9, adult; I69.998 Other sequelae following unspecified cerebrovascular disease; E66.01 Morbid (severe) obesity due to excess calories; E11.9 Type 2 diabetes mellitus without complications
CPT/HCPCS: 36415; 71046; 74181; 76705; 80053; 80061; 81001; 83605; 83690; 83735; 84100; 84484; 85025; 85610; 86038; 86255; 86704; 86709; 86803; 87040-91; 87340; 93005; 96374; 96375; 97161; 97167; 99285-25

== ENCOUNTER 2019-05-20 10:17 | Emergency (ER) | payer OTHER | END 2019-05-20 12:38 | disposition home or self-care (01) | LOC: E/R 12:38 | DX: L08.9 Local infection of the skin and subcutaneous tissue, unspecified (principal); I10 Essential (primary) hypertension; E66.9 Obesity, unspecified; Z86.73 Personal history of transient ischemic attack (TIA), and cerebral infarction without residual deficits; Z87.891 Personal history of nicotine dependence | CPT/HCPCS: 99283; Z7502 ==